=== PATIENT | female | born 1930 | race Caucasian/White ===

== ENCOUNTER 2018-10-24 16:39 | Inpatient (IN) | payer MEDICAID ==
[2018-10-24 17:29] LABS: ADD MAN DIFF? NO
[2018-10-24 17:33] LABS: BASOPHILS % 0.2 % (0.0-2.0); EOSINOPHILS % 0.2 % (0.0-7.0); HEMATOCRIT 36.1 % (37.0-47.0); LYMPHOCYTES # 1.2 10^3/ul (0.8-2.9); LYMPHOCYTES % 11.7 % (15.0-51.0); MEAN CORPUSCULAR HEMOGLOBIN 30.6 pg (29.0-33.0); MEAN CORPUSCULAR HGB CONC 33.2 g/dl (32.0-37.0); MEAN CORPUSCULAR VOLUME 92.1 fl (82.0-101.0); MEAN PLATELET VOLUME 10.9 fl (7.4-10.4); MONOCYTE # 1.1 10^3/ul (0.3-0.9); MONOCYTES % 10.8 % (0.0-11.0); NEUTROPHILS % 76.4 % (39.0-77.0); PLATELET COUNT 172 10^3/UL (140-415); RED BLOOD COUNT 3.92 10^6/ul (4.20-5.40); RED CELL DISTRIBUTION WIDTH 13.7 % (11.5-14.5)
[2018-10-24 17:33] LABS: WHITE BLOOD COUNT 10.5 10^3/ul (4.8-10.8)
[2018-10-24 17:50] LABS: ALANINE AMINOTRANSFERASE 24 IU/L (13-69); ALBUMIN 4.3 g/dl (3.3-4.9); ALBUMIN/GLOBULIN RATIO 1.07; ALKALINE PHOSPHATASE 112 IU/L (42-121); ANION GAP 11 (5-13); ASPARTATE AMINO TRANSFERASE 28 IU/L (15-46); BILIRUBIN,INDIRECT 0.7 mg/dl (0-1.1); BILIRUBIN,TOTAL 0.7 mg/dl (0.2-1.3); BLOOD UREA NITROGEN 34 mg/dl (7-20); CALCIUM 10.2 mg/dl (8.4-10.2); CARBON DIOXIDE 27 mmol/L (21-31); CHLORIDE 100 mmol/L (97-110); CREATININE 1.15 mg/dl (0.44-1.00); GLUCOSE 227 mg/dl (70-220); POTASSIUM 3.5 mmol/L (3.5-5.1); SODIUM 138 mmol/L (135-144); TOTAL PROTEIN 8.3 g/dl (6.1-8.1)
[2018-10-24 17:53] LABS: INR 1.07; PARTIAL THROMBOPLASTIN TIME 25.8 Sec (23.0-35.0); PT RATIO 1.1
[2018-10-24] MEDS: CEFEPIME 2GM/50 ML (PMX) 50 ML IVPB (17:55)
[2018-10-24] MEDS: SODIUM CHLORIDE 0.9% 1L BAG IV* (17:55)
[2018-10-24 18:02] LABS: TROPONIN-I < 0.012 ng/ml (0.000-0.120)
[2018-10-24] MEDS: VANCOMYCIN 1 GM (PMX) 250 ML IVPB (18:38)
[2018-10-24 19:14] LABS: ADD UMIC YES; UR ASCORBIC ACID NEGATIVE (NEGATIVE); UR BACTERIA FEW /HPF (NONE SEEN); UR BILIRUBIN (Dip) NEGATIVE (NEGATIVE); UR BLOOD (Dip) 1+ mg/dL (NEGATIVE); UR CLARITY CLEAR (CLEAR); UR COLOR STRAW (YELLOW); UR GLUCOSE (Dip) NEGATIVE (NEGATIVE); UR KETONES (Dip) NEGATIVE (NEGATIVE); UR LEUKOCYTE ESTERASE (Dip) NEGATIVE Leu/ul (NEGATIVE); UR NITRITE (Dip) POSITIVE (NEGATIVE); UR RBC 1 /HPF (0-5); UR SPECIFIC GRAVITY (Dip) 1.009 (1.003-1.030); UR TOTAL PROTEIN (Dip) 1+ mg/dl (NEGATIVE); UR UROBILINOGEN (Dip) NEGATIVE (NEGATIVE); UR WBC 2 /HPF (0-5)
[2018-10-24] MEDS: DIPHENHYDRAMINE 50 MG INJ IV (21:02)
[2018-10-24] MEDS: RANITIDINE 50 MG in SOD CHLORIDE 0.9% 50 ML IVPB (21:39)
[2018-10-24] MEDS: ACETAMINOPHEN 325 MG TAB PO ×2 (21:46→22:24)
[2018-10-24 21:54] LABS: LACTIC ACID 1.9 mmol/L (0.5-2.0)
[2018-10-24] MEDS ORDERED: ACETAMINOPHEN 325 MG TAB PO (22:00)
[2018-10-24] MEDS ORDERED: ONDANSETRON 4 MG INJ IV ×2 (22:00→23:30)
[2018-10-24] MEDS ORDERED: NACL 0.9% 3 ML SYG IV (23:30)
[2018-10-25] MEDS: SOD CHLORIDE 0.9% 1,000 ML IV ×2 (00:20→12:07)
[2018-10-25] MEDS: LABETALOL HCL 20MG INJ IV (00:23)
[2018-10-25] MEDS ORDERED: ACETAMINOPHEN 650 MG SUPP PR (00:30)
[2018-10-25 06:21] LABS: ADD MAN DIFF? NO
[2018-10-25 06:28] LABS: WHITE BLOOD COUNT 10.4 10^3/ul (4.8-10.8)
[2018-10-25 06:28] LABS: BASOPHILS % 0.3 % (0.0-2.0); EOSINOPHILS % 0.1 % (0.0-7.0); HEMATOCRIT 32.8 % (37.0-47.0); HEMOGLOBIN 10.7 g/dl (12.0-16.0); LYMPHOCYTES # 1.5 10^3/ul (0.8-2.9); LYMPHOCYTES % 14.5 % (15.0-51.0); MEAN CORPUSCULAR HGB CONC 32.6 g/dl (32.0-37.0); MEAN CORPUSCULAR VOLUME 91.9 fl (82.0-101.0); MEAN PLATELET VOLUME 11.9 fl (7.4-10.4); MONOCYTE # 1.1 10^3/ul (0.3-0.9); MONOCYTES % 10.2 % (0.0-11.0); NEUTROPHIL # 7.7 10^3/ul (1.6-7.5); NEUTROPHILS % 74.3 % (39.0-77.0); PLATELET COUNT 155 10^3/UL (140-415); RED BLOOD COUNT 3.57 10^6/ul (4.20-5.40); RED CELL DISTRIBUTION WIDTH 13.7 % (11.5-14.5)
[2018-10-25 06:43] LABS: ALANINE AMINOTRANSFERASE 24 IU/L (13-69); ALBUMIN 3.4 g/dl (3.3-4.9); ALBUMIN/GLOBULIN RATIO 0.94; ALKALINE PHOSPHATASE 88 IU/L (42-121); ANION GAP 13 (5-13); ASPARTATE AMINO TRANSFERASE 23 IU/L (15-46); BILIRUBIN,INDIRECT 0.7 mg/dl (0-1.1); BILIRUBIN,TOTAL 0.7 mg/dl (0.2-1.3); BLOOD UREA NITROGEN 23 mg/dl (7-20); CALCIUM 8.8 mg/dl (8.4-10.2); CARBON DIOXIDE 24 mmol/L (21-31); CHLORIDE 103 mmol/L (97-110); CHOL/HDL RATIO 4.1 RATIO; CHOLESTEROL 150 mg/dl (100-200); CREATININE 0.98 mg/dl (0.44-1.00); GLUCOSE 197 mg/dl (70-220); HDL CHOLESTEROL 36 mg/dl (33-92); LDL CHOLESTEROL,CALCULATED 95 mg/dl; MAGNESIUM 1.7 mg/dl (1.7-2.5); POTASSIUM 3.1 mmol/L (3.5-5.1); SODIUM 140 mmol/L (135-144); TRIGLYCERIDES 97 mg/dl (0-149)
[2018-10-25] MEDS: hydrALAzine 20 MG INJ IV ×2 (07:34→16:53)
[2018-10-25] MEDS: CEFEPIME 1GM/50 ML (PMX) 50 ML IVPB ×2 (08:48→20:30)
[2018-10-25] MEDS: METOPROLOL 25 MG TAB PO ×2 (09:00→20:29)
[2018-10-25] MEDS: ASPIRIN 81 MG TAB PO ×2 (09:00→12:49)
[2018-10-25] MEDS ORDERED: VANCOMYCIN IV PER PHARMACY XX (09:00)
[2018-10-25] MEDS: HEPARIN 5,000 UNIT/1 ML VIAL SC ×2 (10:09→20:53)
[2018-10-25] MEDS ORDERED: ASPIRIN 300 MG SUPP PR (11:00)
[2018-10-25] MEDS: POTASSIUM CHLORIDE (SR) 20 MEQ TAB PO (11:15)
[2018-10-25] MEDS: MAGNESIUM SULFATE 1 GM/D5W 100 ML IVPB (12:07)
[2018-10-25] MEDS: POTASSIUM CHLORIDE 100 ML IVPB ×2 (13:19→16:51)
[2018-10-25] MEDS: ATORVASTATIN 20 MG TAB PO (20:30)
[2018-10-25] MEDS: FAMOTIDINE 20 MG INJ IV (20:30)
[2018-10-26] MEDS: SOD CHLORIDE 0.9% 1,000 ML IV ×2 (00:15→07:31)
[2018-10-26] MEDS: hydrALAzine 20 MG INJ IV (00:31)
[2018-10-26] MEDS: ACETAMINOPHEN 325 MG TAB PO (00:32)
[2018-10-26] MEDS ORDERED: VANCOMYCIN 750 MG (PMX) 250 ML IVPB (06:00)
[2018-10-26 06:09] LABS: ADD MAN DIFF? NO
[2018-10-26 06:13] LABS: WHITE BLOOD COUNT 10.3 10^3/ul (4.8-10.8)
[2018-10-26 06:13] LABS: BASOPHILS % 0.4 % (0.0-2.0); EOSINOPHILS # 0.2 10^3/ul (0.0-0.5); EOSINOPHILS % 1.5 % (0.0-7.0); HEMATOCRIT 35.4 % (37.0-47.0); HEMOGLOBIN 11.5 g/dl (12.0-16.0); LYMPHOCYTES # 2.2 10^3/ul (0.8-2.9); LYMPHOCYTES % 21.1 % (15.0-51.0); MEAN CORPUSCULAR HEMOGLOBIN 30.5 pg (29.0-33.0); MEAN CORPUSCULAR HGB CONC 32.5 g/dl (32.0-37.0); MEAN CORPUSCULAR VOLUME 93.9 fl (82.0-101.0); MEAN PLATELET VOLUME 11.5 fl (7.4-10.4); MONOCYTE # 1.1 10^3/ul (0.3-0.9); MONOCYTES % 10.8 % (0.0-11.0); NEUTROPHIL # 6.7 10^3/ul (1.6-7.5); NEUTROPHILS % 65.5 % (39.0-77.0); PLATELET COUNT 175 10^3/UL (140-415); RED BLOOD COUNT 3.77 10^6/ul (4.20-5.40); RED CELL DISTRIBUTION WIDTH 13.9 % (11.5-14.5)
[2018-10-26 06:33] LABS: ANION GAP 8 (5-13); BLOOD UREA NITROGEN 21 mg/dl (7-20); CALCIUM 9.3 mg/dl (8.4-10.2); CARBON DIOXIDE 25 mmol/L (21-31); CHLORIDE 107 mmol/L (97-110); CREATININE 0.93 mg/dl (0.44-1.00); GLUCOSE 127 mg/dl (70-220); MAGNESIUM 2.3 mg/dl (1.7-2.5); POTASSIUM 3.3 mmol/L (3.5-5.1); SODIUM 140 mmol/L (135-144)
[2018-10-26] MEDS ORDERED: GLUCAGON 1 MG INJ IM (07:30)
[2018-10-26] MEDS ORDERED: DEXTROSE 50% 50 ML SYRINGE IV ×2 (07:30)
[2018-10-26] MEDS ORDERED: GLUCOSE GEL 15 GRAM TUBE BUCCAL (07:30)
[2018-10-26] MEDS ORDERED: GLUCOSE GEL 15 GRAM TUBE PO ×2 (07:30)
[2018-10-26] MEDS ORDERED: ASPIRIN 81 MG TAB PO (09:00)
[2018-10-26] MEDS: ASPIRIN 81 MG TAB PO (09:02)
[2018-10-26] MEDS: CEFEPIME 1GM/50 ML (PMX) 50 ML IVPB ×2 (09:02→20:55)
[2018-10-26] MEDS: POTASSIUM CHLORIDE 100 ML IVPB ×2 (09:02→13:50)
[2018-10-26] MEDS: METOPROLOL 25 MG TAB PO (09:03)
[2018-10-26] MEDS: INSULIN ASPART [NOVOLOG] 3 ML PEN SC ×4 (09:23→20:48)
[2018-10-26] MEDS: HEPARIN 5,000 UNIT/1 ML VIAL SC ×2 (09:24→20:45)
[2018-10-26] MEDS: ATORVASTATIN 20 MG TAB PO (20:50)
[2018-10-26] MEDS: METOPROLOL 50 MG TAB PO (20:55)
[2018-10-26] MEDS: FAMOTIDINE 20 MG INJ IV (20:56)
[2018-10-27] MEDS: HALOPERIDOL 5 MG INJ IM (00:31)
[2018-10-27] MEDS: hydrALAzine 20 MG INJ IM (00:32)
[2018-10-27] MEDS: ACCU-CHEK XX (00:40)
[2018-10-27] MEDS: morphine 4 MG/ML VIAL IV (02:46)
[2018-10-27] MEDS: hydrALAzine 20 MG INJ IV (04:23)
[2018-10-27 05:55] LABS: ADD MAN DIFF? NO
[2018-10-27 06:02] LABS: BASOPHILS % 0.2 % (0.0-2.0); EOSINOPHILS % 0.4 % (0.0-7.0); HEMATOCRIT 32.5 % (37.0-47.0); HEMOGLOBIN 10.8 g/dl (12.0-16.0); LYMPHOCYTES # 1.3 10^3/ul (0.8-2.9); LYMPHOCYTES % 13.7 % (15.0-51.0); MEAN CORPUSCULAR HEMOGLOBIN 30.1 pg (29.0-33.0); MEAN CORPUSCULAR HGB CONC 33.2 g/dl (32.0-37.0); MEAN CORPUSCULAR VOLUME 90.5 fl (82.0-101.0); MEAN PLATELET VOLUME 11.1 fl (7.4-10.4); MONOCYTES % 10.4 % (0.0-11.0); NEUTROPHIL # 7.2 10^3/ul (1.6-7.5); NEUTROPHILS % 74.5 % (39.0-77.0); PLATELET COUNT 198 10^3/UL (140-415); RED BLOOD COUNT 3.59 10^6/ul (4.20-5.40); RED CELL DISTRIBUTION WIDTH 13.6 % (11.5-14.5)
[2018-10-27 06:02] LABS: WHITE BLOOD COUNT 9.7 10^3/ul (4.8-10.8)
[2018-10-27 06:32] LABS: ANION GAP 10 (5-13); BLOOD UREA NITROGEN 22 mg/dl (7-20); CALCIUM 9.3 mg/dl (8.4-10.2); CARBON DIOXIDE 23 mmol/L (21-31); CHLORIDE 107 mmol/L (97-110); CREATININE 0.79 mg/dl (0.44-1.00); GLUCOSE 160 mg/dl (70-220); POTASSIUM 3.8 mmol/L (3.5-5.1); SODIUM 140 mmol/L (135-144)
[2018-10-27] MEDS: INSULIN ASPART [NOVOLOG] 3 ML PEN SC ×4 (09:39→20:54)
[2018-10-27] MEDS: CEFEPIME 1GM/50 ML (PMX) 50 ML IVPB ×2 (09:40→20:52)
[2018-10-27] MEDS: ASPIRIN 81 MG TAB PO (09:41)
[2018-10-27] MEDS: METOPROLOL 50 MG TAB PO ×2 (09:43→20:53)
[2018-10-27] MEDS: HEPARIN 5,000 UNIT/1 ML VIAL SC ×2 (09:59→21:10)
[2018-10-27] MEDS: SOD CHLORIDE 0.9% 1,000 ML IV (17:34)
[2018-10-27] MEDS: ATORVASTATIN 20 MG TAB PO (20:50)
[2018-10-27] MEDS: FAMOTIDINE 20 MG INJ IV (20:51)
[2018-10-28] MEDS: hydrALAzine 20 MG INJ IV (01:16)
[2018-10-28] MEDS: ACCU-CHEK XX (01:17)
[2018-10-28 06:36] LABS: ADD MAN DIFF? NO
[2018-10-28 06:44] LABS: BASOPHILS % 0.5 % (0.0-2.0); EOSINOPHILS # 0.2 10^3/ul (0.0-0.5); EOSINOPHILS % 2.2 % (0.0-7.0); HEMATOCRIT 33.9 % (37.0-47.0); HEMOGLOBIN 11.2 g/dl (12.0-16.0); LYMPHOCYTES # 1.5 10^3/ul (0.8-2.9); LYMPHOCYTES % 17.3 % (15.0-51.0); MEAN CORPUSCULAR HEMOGLOBIN 30.2 pg (29.0-33.0); MEAN CORPUSCULAR VOLUME 91.4 fl (82.0-101.0); MEAN PLATELET VOLUME 11.3 fl (7.4-10.4); MONOCYTES % 11.1 % (0.0-11.0); NEUTROPHIL # 5.9 10^3/ul (1.6-7.5); NEUTROPHILS % 67.9 % (39.0-77.0); PLATELET COUNT 217 10^3/UL (140-415); RED BLOOD COUNT 3.71 10^6/ul (4.20-5.40); RED CELL DISTRIBUTION WIDTH 13.8 % (11.5-14.5)
[2018-10-28 06:44] LABS: WHITE BLOOD COUNT 8.6 10^3/ul (4.8-10.8)
[2018-10-28 07:00] LABS: ANION GAP 12 (5-13); BLOOD UREA NITROGEN 26 mg/dl (7-20); CALCIUM 9.2 mg/dl (8.4-10.2); CARBON DIOXIDE 23 mmol/L (21-31); CHLORIDE 104 mmol/L (97-110); CREATININE 0.83 mg/dl (0.44-1.00); GLUCOSE 120 mg/dl (70-220); MAGNESIUM 1.9 mg/dl (1.7-2.5); POTASSIUM 3.4 mmol/L (3.5-5.1); SODIUM 139 mmol/L (135-144)
[2018-10-28 07:00] LABS: PHOSPHORUS 3.1 mg/dl (2.5-4.9)
[2018-10-28] MEDS: INSULIN ASPART [NOVOLOG] 3 ML PEN SC ×4 (07:55→21:00)
[2018-10-28] MEDS: ASPIRIN 81 MG TAB PO (08:14)
[2018-10-28] MEDS: CEFEPIME 1GM/50 ML (PMX) 50 ML IVPB ×2 (08:14→20:48)
[2018-10-28] MEDS: METOPROLOL 50 MG TAB PO ×2 (08:15→20:49)
[2018-10-28] MEDS: HEPARIN 5,000 UNIT/1 ML VIAL SC ×2 (08:29→21:04)
[2018-10-28] MEDS: POTASSIUM CHLORIDE (SR) 20 MEQ TAB PO (11:30)
[2018-10-28] MEDS: SOD CHLORIDE 0.9% 1,000 ML IV (17:48)
[2018-10-28] MEDS: FAMOTIDINE 20 MG INJ IV (20:47)
[2018-10-28] MEDS: ATORVASTATIN 20 MG TAB PO (20:48)
[2018-10-29] MEDS: ACCU-CHEK XX (01:22)
[2018-10-29] MEDS: hydrALAzine 20 MG INJ IV (01:23)
[2018-10-29] MEDS: INSULIN ASPART [NOVOLOG] 3 ML PEN SC ×4 (07:55→20:55)
[2018-10-29] MEDS: CEFEPIME 1GM/50 ML (PMX) 50 ML IVPB (08:33)
[2018-10-29] MEDS: METOPROLOL 50 MG TAB PO ×2 (08:37→20:56)
[2018-10-29] MEDS: ASPIRIN 81 MG TAB PO (08:37)
[2018-10-29] MEDS: HEPARIN 5,000 UNIT/1 ML VIAL SC ×2 (08:53→21:27)
[2018-10-29 18:06] LABS: ALANINE AMINOTRANSFERASE 22 IU/L (13-69); ALBUMIN 2.9 g/dl (3.3-4.9); ALKALINE PHOSPHATASE 93 IU/L (42-121); ASPARTATE AMINO TRANSFERASE 28 IU/L (15-46); BILIRUBIN,INDIRECT 0.1 mg/dl (0-1.1); BILIRUBIN,TOTAL 0.1 mg/dl (0.2-1.3); TOTAL PROTEIN 6.3 g/dl (6.1-8.1)
[2018-10-29 18:11] LABS: AMMONIA 17 umol/l (9-30)
[2018-10-29] MEDS: CIPROFLOXACIN 500 MG TAB PO (18:44)
[2018-10-29] MEDS: SOD CHLORIDE 0.9% 1,000 ML IV (18:44)
[2018-10-29] MEDS: FAMOTIDINE 20 MG INJ IV (20:55)
[2018-10-29] MEDS: ATORVASTATIN 20 MG TAB PO (20:55)
[2018-10-29] MEDS ORDERED: CARBIDOPA/LEVODOPA (25/100) TAB PO (21:00)
[2018-10-30] MEDS: ACCU-CHEK XX (02:00)
[2018-10-30] MEDS: ALBUTEROL/IPRATROPIUM (NEB) 3 ML AMP HHN (02:57)
[2018-10-30] MEDS: hydrALAzine 20 MG INJ IV ×2 (05:02→16:40)
[2018-10-30] MEDS: CIPROFLOXACIN 500 MG TAB PO ×2 (05:02→18:52)
[2018-10-30 06:25] LABS: ADD MAN DIFF? NO
[2018-10-30 06:35] LABS: BASOPHIL # 0.1 10^3/ul (0.0-0.1); BASOPHILS % 0.7 % (0.0-2.0); EOSINOPHILS # 0.3 10^3/ul (0.0-0.5); EOSINOPHILS % 4.6 % (0.0-7.0); HEMATOCRIT 33.7 % (37.0-47.0); LYMPHOCYTES % 27.1 % (15.0-51.0); MEAN CORPUSCULAR HEMOGLOBIN 30.1 pg (29.0-33.0); MEAN CORPUSCULAR HGB CONC 32.6 g/dl (32.0-37.0); MEAN CORPUSCULAR VOLUME 92.3 fl (82.0-101.0); MEAN PLATELET VOLUME 11.3 fl (7.4-10.4); MONOCYTE # 0.9 10^3/ul (0.3-0.9); MONOCYTES % 12.2 % (0.0-11.0); NEUTROPHIL # 3.9 10^3/ul (1.6-7.5); NEUTROPHILS % 53.9 % (39.0-77.0); PLATELET COUNT 241 10^3/UL (140-415); RED BLOOD COUNT 3.65 10^6/ul (4.20-5.40); RED CELL DISTRIBUTION WIDTH 13.6 % (11.5-14.5)
[2018-10-30 06:35] LABS: WHITE BLOOD COUNT 7.2 10^3/ul (4.8-10.8)
[2018-10-30 06:53] LABS: POSITIVE DIFF @See below
[2018-10-30] MEDS: INSULIN ASPART [NOVOLOG] 3 ML PEN SC ×4 (07:43→20:42)
[2018-10-30 08:28] LABS: ANION GAP 8 (5-13); BLOOD UREA NITROGEN 23 mg/dl (7-20); CALCIUM 9.7 mg/dl (8.4-10.2); CARBON DIOXIDE 22 mmol/L (21-31); CHLORIDE 111 mmol/L (97-110); CREATININE 0.83 mg/dl (0.44-1.00); GLUCOSE 105 mg/dl (70-220); PHOSPHORUS 3.5 mg/dl (2.5-4.9); POTASSIUM 3.5 mmol/L (3.5-5.1); SODIUM 141 mmol/L (135-144)
[2018-10-30] MEDS: ASPIRIN 81 MG TAB PO (08:30)
[2018-10-30] MEDS: METOPROLOL 50 MG TAB PO ×2 (08:31→20:42)
[2018-10-30] MEDS: HEPARIN 5,000 UNIT/1 ML VIAL SC ×2 (08:33→20:53)
[2018-10-30 08:59] LABS: BAND NEUTROPHILS #M 0.2 10^3/ul (0.0-0.6); BAND NEUTROPHILS % (M) 4 % (0-4); EOSINOPHILS % (M) 4 % (0-7); GIANT THROMBO% (M) 4 % (0-0); LYMPHOCYTES #M 2.1 10^3/ul (0.8-2.9); LYMPHOCYTES % (M) 30 % (15-51); METAMYELOCYTES #M 0.1 10^3/ul (0.0-0.0); METAMYELOCYTES %M 2 % (0-0); MONOCYTE #M 0.2 10^3/ul (0.3-0.9); MONOCYTES % (M) 4 % (0-11); PLATELET ESTIMATE NORMAL; POLYCHROMASIA 1+ (0-0); REACTIVE LYMPHOCYTES #M 0.1 10^3/ul (0.0-0.0); REACTIVE LYMPHOCYTES% (M) 2 % (0-0); SEG NEUT #M 3.9 10^3/ul (1.6-7.5); SEGMENTED NEUTROPHILS (M) % 54 % (39-77); SMUDGE%M 11 % (0-0)
[2018-10-30] MEDS: SOD CHLORIDE 0.9% 1,000 ML IV (16:57)
[2018-10-30 17:48] LABS: AADO2 Arterial 77.6 mmHg (7.0-24.0); Allen Test ACCEPTAB; Arterial Base Excess 1.9 mmol/L (-3.0-3); Arterial Blood Gas Oxygen Sat 95.4 mmHG (95.0-100.0); Arterial COHb 0.3 % (0.0-3.0); Arterial Fraction of Oxyhgb 94.6 % (93.0-99.0); Arterial HCO3 24.6 mmol/L (22.0-26.0); Arterial MetHb 0.5 % (0.0-1.5); Arterial pCO2 31.8 mmhg (35-45); MODE NASAL CANNULA; Site Right Radial
[2018-10-30] MEDS: FAMOTIDINE 20 MG TAB PO (20:41)
[2018-10-30] MEDS: ATORVASTATIN 20 MG TAB PO (20:41)
[2018-10-31] MEDS: hydrALAzine 20 MG INJ IV ×2 (00:05→07:56)
[2018-10-31] MEDS: ENALAPRILAT 1.25 MG INJ IV (01:11)
[2018-10-31] MEDS: ACCU-CHEK XX (01:31)
[2018-10-31] MEDS: ALBUTEROL/IPRATROPIUM (NEB) 3 ML AMP HHN (03:04)
[2018-10-31] MEDS: LABETALOL HCL 20MG INJ IV (03:45)
[2018-10-31] MEDS ORDERED: FUROSEMIDE 20 MG INJ (05:14)
[2018-10-31] MEDS: FUROSEMIDE 20 MG INJ IV (05:18)
[2018-10-31] MEDS: CIPROFLOXACIN 500 MG TAB PO (05:19)
[2018-10-31 07:02] LABS: ADD MAN DIFF? NO
[2018-10-31 07:12] LABS: HEMATOCRIT 34.2 % (37.0-47.0); HEMOGLOBIN 11.2 g/dl (12.0-16.0); MEAN CORPUSCULAR HEMOGLOBIN 29.6 pg (29.0-33.0); MEAN CORPUSCULAR HGB CONC 32.7 g/dl (32.0-37.0); MEAN CORPUSCULAR VOLUME 90.5 fl (82.0-101.0); MEAN PLATELET VOLUME 11.2 fl (7.4-10.4); PLATELET COUNT 293 10^3/UL (140-415); RED BLOOD COUNT 3.78 10^6/ul (4.20-5.40)
[2018-10-31 07:12] LABS: WHITE BLOOD COUNT 7.6 10^3/ul (4.8-10.8)
[2018-10-31 07:20] LABS: POSITIVE DIFF @See below
[2018-10-31 07:33] LABS: ANION GAP 8 (5-13); BLOOD UREA NITROGEN 23 mg/dl (7-20); CALCIUM 9.9 mg/dl (8.4-10.2); CARBON DIOXIDE 25 mmol/L (21-31); CHLORIDE 109 mmol/L (97-110); CREATININE 0.84 mg/dl (0.44-1.00); GLUCOSE 126 mg/dl (70-220); POTASSIUM 3.6 mmol/L (3.5-5.1); SODIUM 142 mmol/L (135-144)
[2018-10-31] MEDS: INSULIN ASPART [NOVOLOG] 3 ML PEN SC ×4 (07:50→21:00)
[2018-10-31] MEDS: METOPROLOL 50 MG TAB PO ×2 (08:33→21:53)
[2018-10-31] MEDS: ASPIRIN 81 MG TAB PO (08:33)
[2018-10-31] MEDS: HEPARIN 5,000 UNIT/1 ML VIAL SC ×2 (08:47→22:04)
[2018-10-31 09:20] LABS: BAND NEUTROPHILS % (M) 1 % (0-4); BASOPHILS % (M) 1 % (0-2); EOSINOPHILS % (M) 3 % (0-7); LYMPHOCYTES #M 1.9 10^3/ul (0.8-2.9); LYMPHOCYTES % (M) 26 % (15-51); MONOCYTE #M 0.6 10^3/ul (0.3-0.9); MONOCYTES % (M) 9 % (0-11); OVALOCYTES 1+ (0-0); PLATELET ESTIMATE NORMAL; POLYCHROMASIA 1+ (0-0); SEG NEUT #M 4.6 10^3/ul (1.6-7.5); SEGMENTED NEUTROPHILS (M) % 60 % (39-77); SMUDGE%M 2 % (0-0)
[2018-10-31] MEDS ORDERED: NIFEdipine (XL) 30 MG TAB PO (21:00)
[2018-10-31] MEDS: FAMOTIDINE 20 MG TAB PO (21:51)
[2018-10-31] MEDS: ATORVASTATIN 20 MG TAB PO (21:51)
[2018-11-01] MEDS: NIFEdipine 10 MG CAP PO ×4 (00:49→21:25)
[2018-11-01] MEDS: ACCU-CHEK XX (02:00)
[2018-11-01 06:58] LABS: ADD MAN DIFF? NO
[2018-11-01 07:04] LABS: BASOPHIL # 0.1 10^3/ul (0.0-0.1); BASOPHILS % 0.7 % (0.0-2.0); EOSINOPHILS # 0.4 10^3/ul (0.0-0.5); EOSINOPHILS % 5.7 % (0.0-7.0); HEMATOCRIT 36.5 % (37.0-47.0); HEMOGLOBIN 11.9 g/dl (12.0-16.0); LYMPHOCYTES # 2.4 10^3/ul (0.8-2.9); LYMPHOCYTES % 31.7 % (15.0-51.0); MEAN CORPUSCULAR HEMOGLOBIN 29.7 pg (29.0-33.0); MEAN CORPUSCULAR HGB CONC 32.6 g/dl (32.0-37.0); MEAN PLATELET VOLUME 11.8 fl (7.4-10.4); MONOCYTE # 0.8 10^3/ul (0.3-0.9); MONOCYTES % 10.3 % (0.0-11.0); NEUTROPHIL # 3.7 10^3/ul (1.6-7.5); NEUTROPHILS % 49.3 % (39.0-77.0); PLATELET COUNT 250 10^3/UL (140-415); RED BLOOD COUNT 4.01 10^6/ul (4.20-5.40); RED CELL DISTRIBUTION WIDTH 14.1 % (11.5-14.5)
[2018-11-01 07:04] LABS: WHITE BLOOD COUNT 7.5 10^3/ul (4.8-10.8)
[2018-11-01 07:45] LABS: ANION GAP 10 (5-13); BLOOD UREA NITROGEN 27 mg/dl (7-20); CALCIUM 10.2 mg/dl (8.4-10.2); CARBON DIOXIDE 25 mmol/L (21-31); CHLORIDE 105 mmol/L (97-110); CREATININE 0.88 mg/dl (0.44-1.00); GLUCOSE 118 mg/dl (70-220); SODIUM 140 mmol/L (135-144)
[2018-11-01] MEDS: INSULIN ASPART [NOVOLOG] 3 ML PEN SC ×4 (07:55→20:33)
[2018-11-01] MEDS: METOPROLOL 50 MG TAB PO ×2 (09:17→21:12)
[2018-11-01] MEDS: ASPIRIN 81 MG TAB PO (09:18)
[2018-11-01] MEDS: HEPARIN 5,000 UNIT/1 ML VIAL SC ×2 (09:49→21:17)
[2018-11-01] MEDS: FAMOTIDINE 20 MG TAB PO (21:12)
[2018-11-01] MEDS: ATORVASTATIN 20 MG TAB PO (21:12)
[2018-11-02] MEDS: ACCU-CHEK XX (02:00)
[2018-11-02] MEDS: NIFEdipine 10 MG CAP PO ×2 (06:13→14:03)
[2018-11-02] MEDS: INSULIN ASPART [NOVOLOG] 3 ML PEN SC ×4 (07:55→21:00)
[2018-11-02] MEDS: METOPROLOL 50 MG TAB PO ×2 (09:24→21:06)
[2018-11-02] MEDS: ASPIRIN 81 MG TAB PO (09:24)
[2018-11-02] MEDS: HEPARIN 5,000 UNIT/1 ML VIAL SC ×2 (09:30→21:36)
[2018-11-02] MEDS: ATORVASTATIN 20 MG TAB PO (21:04)
[2018-11-02] MEDS: FAMOTIDINE 20 MG TAB PO (21:04)
== END 2018-11-02 21:35 | disposition hospice, home (50) | DRG 871 ==
LOC: E/R 16:39 → TEL 21:39
PROVIDERS: Internal Medicine
DX: A41.9 Sepsis, unspecified organism (principal); G92 Toxic encephalopathy; J18.9 Pneumonia, unspecified organism; N17.9 Acute kidney failure, unspecified; N39.0 Urinary tract infection, site not specified; I10 Essential (primary) hypertension; G20 Parkinson's disease; F03.90 Unspecified dementia, unspecified severity, without behavioral disturbance, psychotic disturbance, mood disturbance, and anxiety; E11.9 Type 2 diabetes mellitus without complications; E87.6 Hypokalemia; B96.89 Other specified bacterial agents as the cause of diseases classified elsewhere; Z86.73 Personal history of transient ischemic attack (TIA), and cerebral infarction without residual deficits
CPT/HCPCS: 36600; 70450; 70551; 71045; 73080-LT; 73200; 80048; 80053; 80061; 80076; 81001; 82140; 82803; 82962; 83036; 83605; 83735; 84100; 84443; 84484; 85025; 85610; 85730; 87040; 87086; 87400; 92610; 93005; 93306; 93880; 94640; 94664; 97110; 97116; 97162; 97530